=== PATIENT | male | born 2000 | race Caucasian/White ===

== ENCOUNTER 2020-08-31 12:45 | Emergency (ER) | payer BC ==
[~2020-08-31] VITALS: Ht 175.3 cm; Wt 73.0 kg
[2020-08-31] MEDS ORDERED: fentaNYL/PF 50MCG/1 ML 2ML syringe IV ONE (13:40)
[2020-08-31] MEDS ORDERED: ondansetron/PF 4mg/2ml inj IV ONE (13:40)
[2020-08-31] MEDS ORDERED: etomidate 2mg/ml inj. IV ONE (13:40)
[2020-08-31] MEDS ORDERED: normal saline 1000ML IV soln IVB ONE (13:40)
[2020-08-31] MEDS ORDERED: propofol 10mg/ml 20ml vial IV ONE (14:15)
[2020-08-31] MEDS ORDERED: diazepam 5mg tablet PO ONE (14:35)
[2020-08-31 17:48] VITALS: BP 146/90
== END 2020-08-31 17:51 | disposition home or self-care (01) ==
LOC: ER 12:46
DX: S43.084A Other dislocation of right shoulder joint, initial encounter (principal); X50.1XXA Overexertion from prolonged static or awkward postures, initial encounter; Y93.89 Activity, other specified; Y92.89 Other specified places as the place of occurrence of the external cause; Y99.8 Other external cause status
CPT/HCPCS: 23650; 73020; 73030; 99152; 99285; J7030; 94760